=== PATIENT | female | born 1995 | race African-American/Black ===

== ENCOUNTER 2020-06-17 21:14 | Emergency (ER) | payer OTHER ==
[~2020-06-17] VITALS: Ht 154.9 cm; Wt 90.7 kg
[2020-06-18] MEDS ORDERED: KEFLEX500 MG PO (02:47)
== END 2020-06-18 02:52 | disposition home or self-care (01) ==
LOC: ER 21:14
DX: O23.41 Unspecified infection of urinary tract in pregnancy, first trimester (principal); Z3A.01 Less than 8 weeks gestation of pregnancy

== ENCOUNTER 2020-07-27 18:50 | Emergency (ER) | payer OTHER ==
[~2020-07-27] VITALS: Ht 154.9 cm; Wt 90.7 kg
[~2020-07-27 18:50] MED LIST: KEFLEX500 MG PO
[2020-07-27] MEDS ORDERED: PRENATALES (19:32)
== END 2020-07-27 23:29 | disposition home or self-care (01) ==
LOC: ER 18:50
DX: O02.1 Missed abortion (principal)

== ENCOUNTER 2021-11-14 09:00 | Outpatient (CLI) | payer OTHER ==
[~2021-11-14 09:00] MED LIST changes: +PRENATALES
== END 2021-11-14 09:15 | disposition home or self-care (01) ==
LOC: PPH VACUNA 09:00
PROVIDERS: ATTEND Emergency Medicine Pediatric Emergency Medicine
DX: Z23 Encounter for immunization (principal)